=== PATIENT | female | born 1935 | race Caucasian/White ===

== ENCOUNTER 2016-06-26 16:17 | Emergency (ER) | payer MEDICARE, BC ==
[~2016-06-26] VITALS: Ht 162.6 cm; Wt 68.1 kg
[~2016-06-26 16:17] MED LIST: AMIT25TA20 PO; GLUCTAB PO; LEVO100T60 PO; MACR100C PO; PRED10PA PO; PROZ20CA11 PO; ROSU10 PO; SULF1TAB47 PO; ZYRT10TA12 PO
[2016-06-26 16:29] VITALS: BP 139/76; PULSE 91; RESP 16; TEMP 97.6; O2SAT 97
[2016-06-26] MEDS ORDERED: METHE500 PO (16:55)
[2016-06-26] MEDS ORDERED: GINK120C4 PO (16:55)
[2016-06-26] MEDS ORDERED: CENTTAB PO (16:55)
[2016-06-26] MEDS ORDERED: LEVO100T5 PO (16:55)
[2016-06-26] MEDS ORDERED: LINA290C PO (16:55)
[2016-06-26] MEDS ORDERED: OCUVTAB4 PO (16:55)
[2016-06-26] MEDS ORDERED: ASPI-110 PO (16:55)
[2016-06-26] MEDS ORDERED: REFRDRO EACH EYE (16:55)
[2016-06-26] MEDS ORDERED: PANT40TA3 PO (16:55)
[2016-06-26] MEDS ORDERED: traMADol HCL 50 MG TAB PO ONE (17:45)
--- NOTE | 2016-06-26 17:49 | PD ---
HPI Chief Complaint: Pain: Acute or Chronic Time Seen by Provider: 17:28 Travel History International Travel<30 days: No Contact w/Intl Traveler<30days: No Traveled to known affect area: No History of Present Illness HPI Patient 80-year-old female presents emergency Department with friends for evaluation of bilateral knee pain. Patient states she's had left knee pain chronically for some time but when she was walking Sunday (3 days ago) she was going down some stairs and the crack/pop in her right knee. She has been ambulatory since then. She states some mild swelling. She localizes the pain over the patella. Denies falls denies head injury back injury neck pain abdominal pain flank pain other extremity pain. PFSH Past Medical History Hx Anticoagulant Therapy: Yes (asa 81mg) Diabetes: Yes Patient Takes Glucophage: Yes Diminished Hearing: Yes (RT EAR DEMINISHED) Hypertension: Yes Renal Failure: Yes (stage III) Thyroid Disease: Yes Tetanus Vaccination: < 5 Years Influenza Vaccination: Yes ?: Not Past Surgical History Cholecystectomy: Yes Genitourinary Surgery: Yes (BLADDER SUSP) Social History Alcohol Use: No Tobacco Use: No ("quit 40 years ago") Substance Use: No Allergies-Medications (Allergen,Severity, Reaction): Coded Allergies: Sulfa (Verified Allergy, Severe, RASH, 06/26/16) Reported Meds & Prescriptions Reported Meds & Active Scripts Active Reported Centrum Silver (Multiple Vitamins W/ Minerals) 1 Tab 1 Tab PO DAILY Preservision Areds (Multiple Vitamins W/ Minerals) 1 Tab 1 Tab PO DAILY Refresh Opth Drops (Polyvinyl Alcohol-Povidone Opth Drops) 1.4-0.6% Drops 1-2 Drop EACH EYE PRN PRN Methenamine Mandelate 500 Mg Tab 250 Mg PO QID Linzess (Linaclotide) 290 Mcg Cap 290 Mcg PO DAILY Aspirin 81 (Aspirin) 81 Mg Tabdr 81 Mg PO DAILY Ginkgo Biloba 120 Mg Cap 1 Cap PO DAILY Pantoprazole (Pantoprazole Sodium) 40 Mg Tab 40 Mg PO DAILY Levothyroxine (Levothyroxine Sodium) 100 Mcg Tab 100 Mcg PO DAILY Review of Systems Except as stated in HPI: all other systems reviewed are Neg Physical Exam Narrative GENERAL: Well-nourished, well-developed patient. SKIN: Focused skin assessment warm/dry. HEAD: Normocephalic. EYES: No scleral icterus. No injection or drainage. NECK: Supple, trachea midline. No JVD or lymphadenopathy. CARDIOVASCULAR: Regular rate and rhythm without murmurs, gallops, or rubs. RESPIRATORY: Breath sounds equal bilaterally. No accessory muscle use. GASTROINTESTINAL: Abdomen soft, non-tender, nondistended. MUSCULOSKELETAL: No cyanosis. Pulses motor and sensory intact distally in all 4 extremity's, compartments are soft. No CT or L-spine tenderness. Pelvis stable. Right lower extremity: Minimal soft tissue swelling at the right knee otherwise atraumatic. No bruising no abrasions nor lacerations seen on the lower extremity. There is no laxity of the right knee. Full nontender range of motion is observed. Right ankle right hip and right foot are atraumatic and have full nontender range of motion. Left lower extremity: There is no gross deformity swelling bruising or laceration or abrasion. Full nontender range of motion of left hip and left knee and left ankle and left foot. BACK: Nontender without obvious deformity. No CVA tenderness. Data Data Last Documented VS Vital Signs Date Time Temp Pulse Resp B/P Pulse Ox O2 Delivery O2 Flow Rate FiO2 06/26/16 16:29 97.6 91 16 139/76 97 Orders Tramadol (Ultram) (06/26/16 17:45) Knee, Complete (4vws) (06/26/16 ) ^ Arun Bandage (06/26/16 18:13) MDM Medical Decision Making Medical Screen Exam Complete: Yes Emergency Medical Condition: Yes Differential Diagnosis Acute on chronic knee pain, knee strain, knee sprain, fracture. Narrative Course Patient roomed in emergency department, given Ultram, x-rays show severe arthritis without any acute bony abnormalities. Patient did ambulate in with her rolling walker. Discussed symptomatically management and follow-up the primary care physician. She is going to take Tylenol for pain at home. She was offered something stronger (Ultram). However she declined this. She is stable for discharge at this time. Diagnosis Primary Impression: Right knee pain Qualified Code: M25.561 - Acute pain of right knee Patient Instructions: Arthritis (GEN), General Instructions Disposition: 01 DISCHARGE HOME Condition: Stable Vikas Benitez MD Jun 26, 2016 17:49
--- NOTE | 2016-06-26 18:02 | RADHPO ---
EXAM DATE/TIME: 06/26/2016 17:45 [facility] COMPARISON: No previous studies available for comparison. INDICATIONS : Right knee pain, twisted while walking down stairs. MEDICAL HISTORY : None. SURGICAL HISTORY : None. ENCOUNTER: Initial ACUITY: 2 days PAIN SCORE: 8/10 LOCATION: Right anterior knee FINDINGS: There is severe 3 compartment joint space narrowing with marginal osteophytosis. 50 mm osteochondral body suspected in anterior notch region. No large effusion demonstrated. No fracture or subluxation s een. CONCLUSION: Severe osteoarthritis and a probable joint body anterior to the notch. No fracture subluxation or sig nificant joint effusion demonstrated. Felix Chadwick MD on June 26, 2016 at 18:00 Board Certified Radiologist. This report was verified electronically.
== END 2016-06-26 18:35 | disposition home or self-care (01) ==
LOC: PHEFT 16:17
DX: M25.561 Pain in right knee (principal); I10 Essential (primary) hypertension; E11.9 Type 2 diabetes mellitus without complications; Z79.82 Long term (current) use of aspirin
CPT/HCPCS: 73564; 99283